=== PATIENT | female | born 1940 | race Caucasian/White ===

== ENCOUNTER → 2022-11-30 14:41 | Outpatient (CLI) | payer MEDICARE, SELFPAY ==
--- NOTE | ~2022-11-30 | XR_ITS ---
EXAM: [id number]_CR, XR_[id number]_CR DATE: 11/30/2022 15:24 HISTORY: M25.561 - Pain in right knee . COMPARISON: None available. FINDINGS: Decreased mineralization. No fracture or dislocation. No lytic or blastic lesion. Moderate bilateral tricompartmental joint space narrowing and osteophytosis. Small bilateral knee joint effus ions. No erosion or periosteal change. Soft tissues within normal limits. IMPRESSION: Moderate bilateral tricompartmental knee osteoarthritis. Reviewed, dictated and finalized at location K. IMPRESSION: Moderate bilateral tricompartmental knee osteoarthritis.
== END ==
PROVIDERS: PCP Family Medicine; Visit Provider Nurse Practitioner Family
DX: M25.562 Pain in left knee (principal); M25.561 Pain in right knee; M17.0 Bilateral primary osteoarthritis of knee
CPT/HCPCS: 73560